=== PATIENT | male | born 1955 | race Caucasian/White ===

== ENCOUNTER 2019-11-12 11:01 | Emergency (ER) | payer OTHER ==
[~2019-11-12] VITALS: Ht 177.8 cm; Wt 75.0 kg
[~2019-11-12 11:01] MED LIST: PROZAC
--- NOTE | 2019-11-12 11:36 | NUR ---
PT BIB [facility] FOR PUBLIC ETOH INTOXICATION. PT STATES "I DIDNT CALL, I DONT WANT TO BE HERE." PT IS NON AMBULATORY AT THIS TIME, DROWSY AND FALLS ASLEEP QUICKLY. PT PLACED ON MONITORS, PT WITH RA SAT <90% WHEN SLEEPING, NC PLACED ON PT @2L, SAT >90% NOW. WHEN PT MORE AWAKE, WILL GIVE MEAL TRAY. PT IS MTF PER ERMD.
--- NOTE | 2019-11-12 12:10 | NUR ---
ERMD AWARE PT HYPOTENSIVE, AWARE PT RECEIVED 1L NS BOLUS SEPARATOR OPERATOR SHELLFISH MEATS BY EMS. ORDERS FOR 2ND L BOLUS OBTAINED, ERMD WILL ORDER CXR AND BREATHING TX WELL. PT REMAINS ON MONITORS, PROTECTING OWN AIRWAY WELL. PT ROUSES TO VOICE. CONT TO MONITOR.
[2019-11-12] MEDS ORDERED: SODIUM CHLORIDE 0.9% 1,000ML IVBOLUS ONE (12:30)
--- NOTE | 2019-11-12 13:00 | NUR ---
PT SLEEPING IN BED. MEAL TRAY ORDERED. REMAINS ON MONITORS. CONT TO MONITOR.
--- NOTE | 2019-11-12 14:11 | NUR ---
PT GIVEN MEAL TRAY, SITTING UP IN BED EATING. WILL ATTEMPT TO AMBULATE. PT ALERT, ABLE TO ANSWER QUESTIONS.
--- NOTE | 2019-11-12 14:33 | NUR ---
PT UNABLE TO AMBULATE, REMAINS HYPOXIC WITHOUT SUPPLIMENTAL O2. ERMD AWARE, PT REMAINS HYPOTENSIVE. LABS ORDERED FOR PT. PT REMAINS ON MONITORS. WILL FOLLOW ORDERS.
[2019-11-12 14:45] LABS: BASOPHILS # (AUTO) 0.04 x10^3/uL (0-0.1); BASOPHILS % (AUTO) 1 % (0-1); EOSINOPHILS # (AUTO) 0.02 x10^3/uL (0-0.4); EOSINOPHILS % (AUTO) 1 % (1-7); LYMPHOCYTES # (AUTO) 1.34 x10^3/uL (1-3.4); LYMPHOCYTES % (AUTO) 37 % (22-44); MD NO; MEAN CORPUSCULAR HEMOGLOBIN 34.8 pg (27.5-34.5); MEAN CORPUSCULAR HGB CONC 33.3 g/dL (33.2-36.2); MEAN CORPUSCULAR VOLUME 104.8 fL (81-97); MEAN PLATELET VOLUME 7.4 fL (7.4-10.4); MONOCYTES % (AUTO) 11 % (2-9); NEUTROPHILS # (AUTO) 1.87 x10^3/uL (1.8-6.8); NEUTROPHILS % (AUTO) 51 % (42-75); PLATELET COUNT 267 x10^3/uL (130-400); RED BLOOD COUNT 3.89 x10^6/uL (4.38-5.82); RED CELL DISTRIBUTION WIDTH 18.1 % (9.4-14.8)
[2019-11-12 14:57] LABS: ALANINE AMINOTRANSFERASE 62 U/L (12-78); ALBUMIN 3.2 g/dL (3.4-5.0); ANION GAP 13 mmol/L (5-15); CALCIUM 7.5 mg/dL (8.5-10.1); CHLORIDE 112 mmol/L (98-107); CREATININE 0.57 mg/dL (0.7-1.3)
[2019-11-12 15:00] LABS: ALKALINE PHOSPHATASE 87 U/L (45-117); BILIRUBIN,TOTAL 0.3 mg/dL (0.2-1.0); TOTAL PROTEIN 6.5 g/dL (6.4-8.2)
--- NOTE | 2019-11-12 15:44 | NUR ---
PT REMAINS DROWSY, ABLE TO ROUSE PT BY VOICE. PT ABLE TO ANSWER SOME QUESTIONS. PROTECTING OWN AIRWAY WELL.
--- NOTE | 2019-11-12 15:44 | NUR ---
PT SLEEPING IN BED, REMAINS ON O2 TO KEEP SAT >90%. REMAINS ON MONITORS. ERMD RECHECK.
--- NOTE | 2019-11-12 16:58 | NUR ---
PT. WAS ROAD TESTED @ 1650 by Flex Haney pt was unstable and was not independent to walk.
--- NOTE | 2019-11-12 17:25 | NUR ---
ERMD AWARE, PT NON AMBULATORY. PT MORE AWAKE AND ALERT. STATES HE HAS HAD DIFFICULTY WALKING FOR "MONTHS." ERMD AWARE. PT REMAISN ON MONITORS. CONT TO MONITOR.
--- NOTE | 2019-11-12 18:18 | NUR ---
PT BACK FROM CT. PT GIVEN MEAL TRAY, PT STATES HE IS NOT HUNGRY. PT REMAINS ON MONITORS. AWAITING CT RESULTS. CONT TO MONITOR.
--- NOTE | 2019-11-12 18:52 | NUR ---
REPORT GIVEN TO IGOR KELLY.
--- NOTE | 2019-11-12 18:57 | NUR ---
Pt resting comfortably on gurney. Nadn. No immediate needs or concerns. Wctm.
[2019-11-12 18:58] VITALS: BP 91/56
== END 2019-11-12 20:04 | disposition home or self-care (01) ==
LOC: ED 15:14
DX: F10.220 Alcohol dependence with intoxication, uncomplicated (principal); Y90.0 Blood alcohol level of less than 20 mg/100 ml; I95.9 Hypotension, unspecified
CPT/HCPCS: 36415; 70450; 71045; 80053; 80307; 82962; 85025; 96360; 96361; 99285; J7030

== ENCOUNTER 2020-05-20 06:20 | Emergency (ER) | payer OTHER ==
[~2020-05-20] VITALS: Ht 175.3 cm; Wt 75.0 kg
[~2020-05-20 06:20] MED LIST changes: +ATOR20TA37 PO; +Albuterol-Ipratropium Mdi INH; +FLUO20CA23 PO; +FLUT1BLS INH; +GABA300C PO; +PANT40TA6 PO; +QUET25TA7 PO; +THIA100T67 PO; +TIOT18CA INH
--- NOTE | 2020-05-20 06:20 | NUR ---
INITIAL PT CONTACT. [facility] TRANSFER FROM [place] FOR RIGHT HIP AND FEMUR FX FOLLOWING A GROUND LEVEL FALL LAST NIGHT. D/C FROM HERE YESTERDAY FOR REPAIR OF RIGHT HIP AND FEMUR FX FOLLOWING A GLF PREVIOUSLY. "I WAS IN AN ALLEY AND TRIPPED AND FELL OVER MY WALKER, THEN I LANDED ON MY RIGHT SIDE AGAIN. I GUESS I HAVE BEEN GETTING DIZZY AND THEN FALLING, I DON'T FEEL DIZZY NOW THOUGH". PIV PLACED AT [facility] AND PT GIVEN 4MG MORPHINE. PT TRANSFERED FROM EMS [facility] TO ED [facility]. NAD, VSS. PT PLACED ON CONTINUOUS PULSE OX AND CARDIAC MONITORING. PT DENIES ANY NEEDS AT THIS TIME. CALL LIGHT AND PERSONAL BELONGINGS WITHIN REACH.
--- NOTE | 2020-05-20 06:49 | NUR ---
BEDSIDE REPORT TO AZIZA KELLY
--- NOTE | 2020-05-20 07:33 | NUR ---
REPORT RECEIVED FROM ROBIN BHATIA, PT IS A&O, RESPS EVEN AND UNLABORED. 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 +3 PEDAL PULSES PALPATED BILATERALLY. PT INSTRUCTED KEEP RIGHT LEG EXTENDED AND IMMOBILE, PT IS NON-COMPLIANT AND BENDING RT KNEE, STATING "I'M DOING WHAT'S COMFORTABLE FOR ME." CMS INTACT TO RT LE. PT IN GOWN, BLANKETS PROVIDED. BED LOCKED AND IN LOWEST POSITION, PT GIVEN CALL LIGHT AND INSTRUCTED ON USE, PT VERBALIZES UNDERSTANDING OF NEED TO CALL FOR STAFF ASSIST AND NOT TO ATTEMPT BED EXIT. PT EDUCATED TO REMAIN NPO. AWAITING FURTHER ORDERS AT THIS TIME.
--- NOTE | 2020-05-20 08:47 | NUR ---
pt sleeping, resps even and unlabored. EDMD awaiting ortho consult with recommendations, admit order to follow.
[2020-05-20] MEDS ORDERED: HYDROcodone/APAP 5/325 TABLET ONE (09:26)
[2020-05-20] MEDS ORDERED: HYDROcodone/APAP 5/325 TABLET PO ONE (09:30)
--- NOTE | 2020-05-20 09:35 | NUR ---
per ortho, pt non-surgical. pt ambulated with walker with this RN per MDs instructions, pt able to ambulate slowly with walker approx 20 ft before becoming dizzy, pt states "I get dizzy when I walk, this has been going on for a few months." ARCADIO Bone notified. Pt is homeless and has numerous belongings at bedside, making ambulation with walker and belongings difficult. ordered social work consult for discharge planning.
--- NOTE | 2020-05-20 10:55 | NUR ---
social work consult in place, manager social media paged to see pt. no answer when called, message left. pt sleeping, awakens to voice. a&o, resps even and unlabored. pt given ED meal tray with MD galvin. pt tolerating well at this time, no s/sx aspiration.
--- NOTE | 2020-05-20 11:24 | NUR ---
socialwork called, states she will round on patient when she is available, ARCADIO Bone notified.
--- NOTE | 2020-05-20 12:37 | NUR ---
Note benny in EDM - 05/20/20 at 1239 by ROS pt resting on gurney, a&o, resps even and unlabored. nsr on monitor car operator. call light in reach. results and poc reviewed, pt given dc instructions and script. educated regarding rx for hctz. piv dc'd with tip intact. pt ambulatory to dc desk with steady gait, all questions answered.
--- NOTE | 2020-05-20 12:39 | NUR ---
note undone, charted on wrong pt
--- NOTE | 2020-05-20 12:40 | NUR ---
pt resting on gurney, a&o, reps even and unlabored. breakfast tray consumed 75%. pt voided 400mL in urinal, concentrated yellow. PO fluids provided. pt has no complaint at this time.
--- NOTE | 2020-05-20 13:00 | NUR ---
REPORT GIVEN TO ROBIN WHALEY WHO IS ASSUMING CARE.
[2020-05-20 13:22] VITALS: BP 117/66
--- NOTE | 2020-05-20 13:23 | NUR ---
BREAK RN - PT RESTING IN BED WITH NO COMPLAINTS AT THIS TIME, PT AWAITING CNC CUTTING OPERATOR INTERVIEW. PT ON MONITOR WITH VSS.
--- NOTE | 2020-05-20 13:27 | NUR ---
CLIENT RELATIONS REPRESENTATIVE STATED (PT WLL NEED TO BE SENT TO LONG TERM WITH CAB VOUCHER, AND NO REH[facility] FAC[facility] OR [facility] IS EXCEPTING [facility] AT THIS TIME)
== END 2020-05-20 14:01 | disposition home or self-care (01) ==
LOC: ED 06:44
DX: G89.11 Acute pain due to trauma (principal); M25.551 Pain in right hip; F10.10 Alcohol abuse, uncomplicated; R94.31 Abnormal electrocardiogram [ECG] [EKG]; Z90.89 Acquired absence of other organs; Z90.49 Acquired absence of other specified parts of digestive tract; Z72.9 Problem related to lifestyle, unspecified; W01.0XXA Fall on same level from slipping, tripping and stumbling without subsequent striking against object, initial encounter; Y93.89 Activity, other specified; Y92.488 Other paved roadways as the place of occurrence of the external cause; Y99.8 Other external cause status; Y90.0 Blood alcohol level of less than 20 mg/100 ml
CPT/HCPCS: 93005; 99285